=== PATIENT | female | born 2000 | race Caucasian/White ===

== ENCOUNTER 2023-01-28 22:14 | Inpatient (IN) ==
--- NOTE | 2023-01-28 23:01 | Emergency Department Note ---
Impression & Plan Pulmonary embolism, Pneumonia ED Provider Note CHIEF COMPLAINT: Upper back pain, shortness of breath, pneumonia and PE HISTORY OF PRESENTING ILLNESS: This 22-year-old female patient presents to the emergency department via EMS with her mother for evaluation of uncontrolled pain. The patient was seen in the emergency department last night and diagnosed with a PE and pneumonia. The patient was sent home with doxycycline, Eliquis, and etodolac. The patient reports significantly more pain on the left side of her lungs/back tonight with no relief from the medications. She rates her discomfort as 10/10. She states that it hurts to sit, to stand, to walk, and to sleep. She states that her pain is significantly worse than yesterday and is requesting stronger pain medication. About 2 weeks ago she had swelling to the right ankle and had an US done that was negative for DVT per patient. She was on OCPs for regulation of her periods, but she did not take her dose today because she was told to stop because of the PE. Her maternal grandfather with a history of PE. REVIEW OF SYSTEMS: See HPI for pertinent positives and pertinent negatives. ALLERGIES: NKDA MEDICATIONS: Zoloft, Zyrtec, Azelastine, Eliquis, Doxycycline, etodolac PAST MEDICAL HISTORY: Depression, Anxiety, Allergic Rhinitis, PE PHYSICAL EXAM: VITALS: Vitals are noted on the nurse's note and reviewed by myself. GENERAL: Non toxic, no acute distress, non-diaphoretic. SKIN: Capillary refill <2 sec. EYES: PERRLA. EOMI. Conjunctivae without injection, sclerae without icterus. NOSE: Patent without discharge. MOUTH: Mucous membranes moist. Uvula midline. Airway patent. NECK: Supple without nuchal rigidity. HEART: Regular rate and rhythm without murmurs gallops or rubs. LUNGS: Clear to auscultation bilaterally without wheezes, rales or rhonchi, but poor air exchange bilaterally. No retractions or accessory muscle use. ABDOMEN: Positive bowel sounds x 4. Normal tympanic percussion. Soft, nontender. No masses or organomegaly. Lim sign negative. No guarding or rebound tenderness. No focal RLQ or LLQ tenderness. MUSCULOSKELETAL: No gross musculoskeletal defects. NEURO: Patient was alert and oriented. No focal neurological deficits. DIFFERENTIAL DIAGNOSIS: Differential diagnosis includes angina, OR, pericarditis, myocarditis, aortic dissection, pleurisy, pneumothorax, PE, pneumonia, pneumomediastinum, esophagitis, esophageal spasm, GERD, perforated esophagus, perforated duodenal/gastric ulcer, pancreatitis, cholecystitis, costochondritis, musculoskeletal, bronchitis, URI, or others. ED COURSE AND MEDICAL DECISION MAKING: MONITOR: Continuous cardiac catheterization technologist: Order was placed for continuous cardiac catheterization technologist. Patient was placed on the cardiac catheterization technologist and continuous pulse ox. Patient was noted to be in normal sinus rhythm at an initial rate of 90 bpm per my interpretation. EKG: EKG was interpreted by myself as normal sinus rhythm at 91 bpm with nonspecific T wave abnormalities, but no acute ST elevation. MEDICATIONS GIVEN: 500 mL normal saline solution bolus. Morphine 4 mg IV and Zofran 4 mg IV. INTERPRETATION OF LABS: I interpreted the labs with full lab results as below in the lab section of this note. White blood cell count elevated at 13.10, but improved from yesterday. Hemoglobin low at 11.3. Platelet count normal at 223. aPTT elevated at 37.2, but coags otherwise normal. Potassium low at 3.2, but CMP otherwise essentially unremarkable. EXTERNAL RECORDS REVIEWED: I reviewed the patient's ER visit and work-up from yesterday. CONSULTATIONS: On-call hospitalist MDM SUMMARY: I examined the patient. I reviewed the patient's ER visit and work-up from yesterday that revealed a PE as well as pneumonia. The patient was discharged home on Eliquis, doxycycline, and etodolac. However, the patient states that her symptoms are getting worse and her pain is not controlled at home. The patient will require admission for further management of her symptoms at this time. I spoke with the on-call hospitalist who agreed to admit the patient for further management of her symptoms. Please refer to their dictation for further details. An IV lock was placed and labs were drawn and are as above. The patient was medicated with morphine 4 mg IV and Zofran 4 mg IV with improvement of her pain. The patient's care was transferred in stable condition. DIAGNOSIS: PE LLL pneumonia Past Med/Surg History Medical History (Updated 01/29/23 @ 05:40 by Vanda Gillette PA-C) No pertinent past medical history No pertinent family history Surgical History (Updated 01/28/23 @ 00:56 by Chalino Frederick MD) No pertinent past surgical history Social History Smoking Status: Never smoker Hx Alcohol Use: Yes Hx Substance Use: No Preferred Language: Irish Communication Ability: Effective Asset Availability Leader Required: No Beliefs That Will Affect Care: None Current Living Situation: Alone Feels Safe at Home: Yes Safety Concerns: Feels Safe At This Time Assistive Devices: Glasses Allergies Allergies Allergy/AdvReac Type Severity Reaction Status Date / Time No Known Drug Allergies Allergy Unknown Verified 12/14/22 08:04 Home Meds Home Medications Medication Instructions Recorded Confirmed cetirizine 10 mg tablet (Zyrtec) 10 mg PO DAILY PRN Allergy Symptoms 12/14/22 01/29/23 ibuprofen 800 mg tablet 800 mg PO Q8 01/27/23 01/29/23 sertraline 100 mg tablet 200 mg PO QAM 01/27/23 01/29/23 norgestimate 0.18 mg/0.215 mg/0.25 1 tab PO UD 01/29/23 01/29/23 mg-ethinyl estradiol 25 mcg tablet (Tri-Lo-Maylin) Previous Rx's Medication Instructions Recorded azelastine 137 mcg (0.1 %) nasal See Rx Instructions .Route 10/27/22 spray aerosol .COMPLEX #30 mL apixaban 5 mg tablet (Eliquis) See Rx Instructions .Route 01/27/23 .COMPLEX #74 tabs doxycycline hyclate 100 mg capsule 100 mg PO BID 7 days #14 caps 01/27/23 etodolac 200 mg capsule 200 mg PO Q12H PRN pain #14 caps 01/27/23 Results & Data (ED) Vital Signs Vital Signs - 24 hr 01/28/23 22:25 01/28/23 23:53 01/28/23 23:53 Temperature 36.5 C Temperature Source Temporal Artery Scan Pulse Rate 98 H Pulse Rate [Right Finger] 90 Respiratory Rate 18 16 Respiratory Effort / Characteristics Non-Labored Spontaneous Respiratory Depth Normal Normal Blood Pressure 122/82 Blood Pressure [Right Arm] 130/100 Blood Pressure Mean 95 Blood Pressure Mean [Right Arm] 110 Pulse Oximetry 98 95 95 Oxygen Delivery Method Room Air Room Air Room Air Sepsis Recent Fever Within 48 Hours No Sepsis New/Unexplained Change in Mental Status N/A Sepsis Action Taken by Nursing No Action Required Laboratory Data 01/28/23 23:50 11/11/23 00:03 Lab Results 01/28/23 01/29/23 Range/Units 23:50 00:03 WBC 13.10 H (4.8-10.8) K/ul RBC 4.26 (4.20-5.40) M/uL Hgb 11.3 L (12.0-16.0) g/dl Hct 34.5 L (37.0-47.0) % MCV 81.0 (80.0-100.0) fL MCH 26.5 (25.0-34.0) pg MCHC 32.8 (32.0-36.0) g/dL RDW Std Deviation 42.7 (36.4-46.3) fL RDW Coeff of [place] 14.6 H (11.5-14.5) % Plt Count 223 (130-400) K/uL MPV 10.4 (9.4-12.4) fL Immature Gran % (Auto) 0.4 % Neut % (Auto) 85.0 % Lymph % (Auto) 8.3 % [place] % (Auto) 5.3 % Eos % (Auto) 0.8 % Baso % (Auto) 0.2 % Neut # (Auto) 11.13 H (1.40-6.50) K/uL Lymph # (Auto) 1.09 L (1.20-3.40) K/uL [place] # (Auto) 0.70 H (0.11-0.59) K/uL Eos # (Auto) 0.10 (0.00-0.50) K/uL Baso # (Auto) 0.03 (0.00-0.20) K/uL Immature Gran # (Auto) 0.05 (0.01-0.20) K/uL PT 11.1 (9.0-12.0) Seconds INR 1.0 (0.9-1.1) APTT 37.2 H (21.0-31.0) Seconds PTT Ratio 1.3 Sodium 139 (136-145) mmol/L Potassium 3.2 L (3.5-5.1) mmol/L Chloride 104 (98-107) mmol/L Carbon Dioxide 25 (21-32) mmol/L Anion Gap 10 (3-11) BUN 5 L (6-23) mg/dl Creatinine 0.56 L (0.6-1.2) mg/dl Est Cr Clr Drug Dosing Not Reportable Est GFR ( Amer) > 150.0 ml/min Est GFR (Non-Af Amer) 131.4 ml/min BUN/Creatinine Ratio 8.9 L (10-20) Glucose 114 H (70-99(Fasting)) mg/dl Calcium 9.2 (8.6-10.3) mg/dl Magnesium 1.9 (1.7-2.4) mg/dl Total Bilirubin 0.6 (0.2-1.0) mg/dl AST 10 L (13-39) U/L ALT 9 (7-52) U/L Alkaline Phosphatase 83 (34-104) U/L Troponin I High Sens 7.3 D (0-14) pg/ml Total Protein 7.3 (6.0-8.3) gm/dl Albumin 4.0 (3.4-5.0) gm/dl Globulin 3.3 (2.5-4.0) gm/dl Albumin/Globulin Ratio 1.2 (0.9-2) Administered Medications Hydromorphone HCl (Hydromorphone Inj 1 Mg/Ml Syringe) 1 mg IV Q4H PRN PRN Reason: Pain Stop: 02/12/23 00:21 Last Admin: 01/29/23 02:24 Dose: 1 mg Documented By: MARTA Doxycycline Hyclate 100 mg/ (Dextrose) 100 mls @ 50 mls/hr IV Q12H ASHWINI Stop: 02/05/23 02:59 Last Admin: 01/29/23 03:45 Dose: 50 mls/hr Documented By: FRANSISCA Discontinued Medications Albuterol (Albut/Ipratrop 3mg/0.5mg Neb 3 Ml Vial) 3 ml NEB Q1H PRN; Protocol PRN Reason: Shortness Of Breath Stop: 02/28/23 00:29 Last Admin: 01/29/23 01:07 Dose: 3 ml Documented By: GREG Hydromorphone HCl (Hydromorphone Inj 1 Mg/Ml Syringe) 1 mg IV NOW STA Stop: 01/29/23 00:23 Last Admin: 01/29/23 00:53 Dose: Not Given Documented By: GREG Sodium Chloride (Nss) 500 mls @ 999 mls/hr IV .Q31M ONE Stop: 01/28/23 23:58 Last Infusion: 01/29/23 01:02 Dose: Infused Documented By: Admin: 01/29/23 00:02 Dose: 999 mls/hr Documented By: GREG Ceftriaxone Sodium 1,000 mg/ (Dextrose) 50 mls @ 100 mls/hr IV Q24H [facility]; Protocol Stop: 02/05/23 02:29 Last Infusion: 01/29/23 03:43 Dose: Infused Documented By: Admin: 01/29/23 03:03 Dose: 100 mls/hr Documented By: FRANSISCA Ceftriaxone Sodium 1,000 mg/ (Dextrose) 50 mls @ 100 mls/hr IV 0430 ONE Stop: 01/29/23 04:59 Last Infusion: 01/29/23 05:09 Dose: Infused Documented By: Admin: 01/29/23 04:31 Dose: 100 mls/hr Documented By: FRANSISCA Methylprednisolone (Methylprednisolone 125 Mg/2 Ml Vial) 60 mg IV NOW STA Stop: 01/29/23 00:23 Last Admin: 01/29/23 01:07 Dose: 60 mg Documented By: GREG Miscellaneous (Patient's Height &/Or Weight Needed) 1 each N/A NOW STA Stop: 01/29/23 02:28 Last Admin: 01/29/23 02:46 Dose: Not Given Documented By: MARTA Morphine Sulfate (Morphine Sulfate 4 Mg/Ml 1 Ml Carp\Vial) 4 mg IV NOW STA Stop: 01/28/23 23:29 Last Admin: 01/29/23 00:02 Dose: 4 mg Documented By: GREG Ondansetron HCl (Ondansetron Inj 2 Mg/Ml 2 Ml Vial) 4 mg IV NOW STA Stop: 01/28/23 23:29 Last Admin: 01/29/23 00:02 Dose: 4 mg Documented By: GREG Discharge Plan Visit Data Chief Complaint: Medication Request Stated Complaint: UPPER BACK PAIN, SOB, PNX/PE ED Provider: Surinder Beltran ED Midlevel Provider: Vanda Gillette Discharge Problem: Pulmonary embolism, Pneumonia Patient Disposition: Admitted As Inpatient Condition: Good Discharge Instructions Interventions: ED Discharge Assessment Last Done: 01/29/23 01:33 Discharge Problem: Pulmonary embolism Qualifiers: Pulmonary embolism type: unspecified Chronicity: acute Acute cor pulmonale presence: unspecified Qualified Code(s): I26.99 - Other pulmonary embolism without acute cor pulmonale Pneumonia Qualifiers: Pneumonia type: due to unspecified organism Laterality: left
[2023-01-28] MEDS ORDERED: SODIUM CHLORIDE 0.9% 500 ML IV ONE (23:28)
[2023-01-28] MEDS ORDERED: MoRPHine SULFATE 4 MG/ML 1 ML CARP\\VIAL IV STA (23:28)
[2023-01-28] MEDS ORDERED: ONDANSETRON INJ 2 MG/ML 2 ML VIAL IV STA (23:28)
--- NOTE | 2023-01-28 23:50 | History & Physical Report ---
Date of Service January 28, 2023 Assessment & Plan (1) Pneumonia: (2) Pulmonary embolism: (3) Depression: Plan 22 yo female with no significant past medical history presents after diagnosis with pneumonia and PE on 12/27/22. #Pneumonia Ceftriaxone 1G IV q24hrs Doxycycline 100mg IV BID Solumedrol 60mg once, decrease to 40mg q12hrs Duonebs #PE Continue Eliquis Venous Doppler b/l LE Pain control Tylenol, dilaudid #Depression Sertraline 200mg daily FENGI: Regular Code status: Full Code DVT prophylaxis: Eliquis Isolation: None Disposition: Med/Surg History of Present Illness Chief Complaint: 22 yo female presents with increased pain after being discharged yesterday 01/27/23 with diagnosis of L lower segmental PE and L lower pneumonia. Discharged on Eliquis, doxycycline, and etodolac. Returning today with continued 10/ pain and continued SOB. Pt was on OCP until yesterday. Pt with maternal grandfather with history of unknown clotting disorder and early cardiac . Primary Care Provider: Erica Akbar MD Allergies Allergy/AdvReac Type Severity Reaction Status Date / Time No Known Drug Allergies Allergy Unknown Verified 12/14/22 08:04 Home Medications Medication Instructions Recorded Confirmed Type azelastine 137 mcg (0.1 %) nasal See Rx Instructions .Route 10/27/22 01/29/23 Rx spray aerosol .COMPLEX #30 mL cetirizine 10 mg tablet (Zyrtec) 10 mg PO DAILY PRN Allergy Symptoms 12/14/22 01/29/23 History apixaban 5 mg tablet (Eliquis) See Rx Instructions .Route 01/27/23 01/29/23 Rx .COMPLEX #74 tabs doxycycline hyclate 100 mg capsule 100 mg PO BID 7 days #14 caps 01/27/23 01/29/23 Rx etodolac 200 mg capsule 200 mg PO Q12H PRN pain #14 caps 01/27/23 01/29/23 Rx ibuprofen 800 mg tablet 800 mg PO Q8 01/27/23 01/29/23 History sertraline 100 mg tablet 200 mg PO QAM 01/27/23 01/29/23 History norgestimate 0.18 mg/0.215 mg/0.25 1 tab PO UD 01/29/23 01/29/23 History mg-ethinyl estradiol 25 mcg tablet (Tri-Lo-Maylin) Past Med/Surg History Medical History (Updated 01/29/23 @ 00:27 by Dennis Duarte DO) No pertinent past medical history No pertinent family history Surgical History (Updated 01/28/23 @ 00:56 by Chalino Frederick MD) No pertinent past surgical history Social History Smoking Status: Never smoker Hx Alcohol Use: Yes Hx Substance Use: No Preferred Language: Mongolian Communication Ability: Effective Crown And Bridge Technician Required: No Beliefs That Will Affect Care: None Current Living Situation: Alone Feels Safe at Home: Yes Safety Concerns: Feels Safe At This Time Assistive Devices: Glasses Review of Systems Review of Systems: reviewed, per HPI Physical Exam Physical Exam: General: patient resting is some discomfort, NAD, non-toxic in appearance, answers questions appropriately and follows commands. Skin: warm, dry, intact HEENT: NC/AT, anicteric sclera, conjunctiva without injection, Heart: +S1/S2, regular, no m/r/g Lungs: equal air entry bilaterally, no rales/rhonchi/wheezes Abd: +BS, soft, NT/ND Ext: warm, no clubbing/cyanosis or edema Neuro: nonfocal, patient AA&O x 4, speech intact, no facial droop, moving all extremities on command. Results & Data Results & Data Vital Signs (Past 12 Hours) Vital Signs Temp Pulse Resp BP Pulse Ox O2 Del Method 01/28/23 22:25 36.5 C 98 H 18 122/82 98 Room Air Supervising Physician Co-Signing Physician Notes Attending addendum: I have physically seen this patient, have supervised the medical residents activities, and agree with the H&P unless as otherwise noted. Assessment and Plan: Left lower lobe pulmonary embolism/left lower lobe consolidated pneumonia- Patient had initially been diagnosed in the emergency department on 01/28/2023. She was discharged from the ED on apixaban and doxycycline. She presented to the ED this evening with intolerable left posterior chest pain Received methylprednisolone 60 mg IV in the ED, will continue 40 mg IV every 12 hours Doxycycline 100 mg IV twice daily Ceftriaxone 2 g IV every 24 hours Continue apixaban Order hypercoagulable profile [place] 5/325, 1 every 6 hours as needed for moderate pain Dilaudid 1 mg IV every 4 hours as needed for severe pain She will need to follow-up in outpatient office with a combined resident/attending appointment to go over results of testing She did of note have a negative DVT study 2 weeks ago Resident Activity Tracking Resident Involvement: Resident Care Provided Care Provided: Adult Hospital Medicine (1) Pneumonia Laterality: left Lung location: lower lobe of lung Pneumonia type: due to unspecified organism Qualified Code(s): J18.9 - Pneumonia, unspecified organism (2) Pulmonary embolism Pulmonary embolism type: single subsegmental (without acute cor pulmonale) Qualified Code(s): I26.93 - Single subsegmental pulmonary embolism without acute cor pulmonale
[2023-01-29] MEDS ORDERED: HYDROmorphone INJ 1 MG/ML SYRINGE IV STA (00:22)
[2023-01-29] MEDS ORDERED: ALBUT/IPRATROP 3MG/0.5MG NEB 3 ML VIAL NEB PRN ×2 (00:22→01:34)
[2023-01-29] MEDS ORDERED: methylPREDNISolone 125 MG/2 ML VIAL IV STA (00:22)
[2023-01-29 00:27] LABS: Basophils # (auto) 0.03 K/uL (0.00-0.20); Basophils % (auto) 0.2 %; Eosinophils % (auto) 0.8 %; Hematocrit (blood only) 34.5 % (37.0-47.0); Hemoglobin 11.3 g/dl (12.0-16.0); Immature Granulocytes # (auto) 0.05 K/uL (0.01-0.20); Immature Granulocytes % (auto) 0.4 %; Lymphocytes # (auto) 1.09 K/uL (1.20-3.40); Lymphocytes % (auto) 8.3 %; Mean Corpuscular Hemoglobin 26.5 pg (25.0-34.0); Mean Corpuscular Hgb Conc 32.8 g/dL (32.0-36.0); Mean Platelet Volume 10.4 fL (9.4-12.4); Monocytes % (auto) 5.3 %; Neutrophils # (auto) 11.13 K/uL (1.40-6.50); Platelet Count 223 K/uL (130-400); RDW Coefficient of Variation 14.6 % (11.5-14.5); RDW Standard Deviation 42.7 fL (36.4-46.3); Red Blood Count 4.26 M/uL (4.20-5.40)
[2023-01-29 00:51] LABS: Alanine Aminotransferase 9 U/L (7-52); Albumin Globulin Ratio 1.2 (0.9-2); Alkaline Phosphatase 83 U/L (34-104); Anion Gap 10 (3-11); Aspartate Aminotransferase 10 U/L (13-39); BUN Creatinine Ratio 8.9 (10-20); Bilirubin,Total 0.6 mg/dl (0.2-1.0); Blood Urea Nitrogen 5 mg/dl (6-23); Calcium 9.2 mg/dl (8.6-10.3); Carbon Dioxide 25 mmol/L (21-32); Chloride 104 mmol/L (98-107); Est GFR (African American) > 150.0 ml/min; Est GFR (Non-African American) 131.4 ml/min; Globulin 3.3 gm/dl (2.5-4.0); Glucose 114 mg/dl (70-99(Fasting)); Magnesium 1.9 mg/dl (1.7-2.4); Potassium 3.2 mmol/L (3.5-5.1); Sodium 139 mmol/L (136-145); Total Protein 7.3 gm/dl (6.0-8.3); Troponin I High Sensitivity 7.3 pg/ml (0-14)
[2023-01-29 00:59] LABS: Partial Thromboplastin Ratio 1.3; Partial Thromboplastin Time 37.2 Seconds (21.0-31.0); Prothrombin Time 11.1 Seconds (9.0-12.0)
[2023-01-29] MEDS ORDERED: CETIRIZINE HCL 10 MG TABLET PO PRN (01:34)
[2023-01-29] MEDS ORDERED: ACETAMINOPHEN 325 MG TAB PO PRN (01:34)
[2023-01-29] MEDS ORDERED: ONDANSETRON INJ 2 MG/ML 2 ML VIAL IV PRN (01:34)
[2023-01-29] MEDS ORDERED: POLYETHYLENE (MIRALAX) 17 GM PACK PO PRN (01:34)
[2023-01-29] MEDS ORDERED: ALUMINUM/MAGNESIUM SUSP 30 ML UDC PO PRN (01:34)
[2023-01-29] MEDS ORDERED: HYDROmorphone INJ 1 MG/ML SYRINGE IM PRN (01:34)
[2023-01-29] MEDS: HYDROmorphone INJ 1 MG/ML SYRINGE IV PRN ×3 (02:24→13:41)
[2023-01-29] MEDS ORDERED: Patient's HEIGHT &/or WEIGHT Needed STA (02:27)
[2023-01-29] MEDS ORDERED: cefTRIAXone SODIUM 1,000 MG in DEXTROSE 5 % MINI-B 50 ML IV SCH (02:30)
[2023-01-29] MEDS: DOXYCYCLINE HYCLATE 100 MG in DEXTROSE 5% MINI-B 100 ML IV SCH ×2 (03:45→15:44)
[2023-01-29] MEDS ORDERED: cefTRIAXone SODIUM 1,000 MG in DEXTROSE 5 % MINI-B 50 ML IV ONE (04:30)
--- NOTE | 2023-01-29 05:35 | Billing Data ---
Date of Service January 29, 2023 Coding Level of Care Code 02009 INT INP/OBS CARE
--- NOTE | 2023-01-29 06:34 | Ultrasound Report ---
BILATERAL LOWER EXTREMITY VENOUS DOPPLER CLINICAL HISTORY: Pulmonary emboli. COMPARISON STUDY: Right lower extremity venous Doppler ultrasound January 17, 2023. TECHNIQUE: Sonography of the deep venous system of the bilateral lower extremities was performed. Co mpression and augmentation were evaluated. FINDINGS: There is no deep venous thrombus within the right lower extremity. Deep venous thrombus is noted within the left peroneal vein. No additional sites of deep venous thrombus is identified. IMPRESSION: Deep venous thrombus within the left peroneal vein. No additional sites of deep venous th rombus within the lower extremities. ACT 112: Negative or not required by law. Electronically signed by: Ben Conway M.D. 01/29/2023 6:32 AM
[2023-01-29] MEDS: HYDROCODONE/ACETAMOPHEN 5/325MG TAB PO PRN ×2 (06:37→20:18)
[2023-01-29] MEDS ORDERED: POTASSIUM CHLORIDE CRTAB 20 MEQ TABCR PO STA (07:19)
--- NOTE | 2023-01-29 07:54 | Hospitalist Progress Note ---
Date of Service January 29, 2023 Assessment & Plan (1) Pneumonia: (2) Pulmonary embolism: (3) Depression: Plan 22 y/o female with no significant past medical history presents after diagnosis with pneumonia and PE on 12/27/22. #PE #Pain control Patient presented to the ED 01/27 with CP and SOB. Patient with elevated D-dimer and CT with left lower PE. Non-smoker, no recent immobility. Does take combo OCPs - stopped at ED visit. Patient also with a LLL pneumonia. Discharged home with abx, Eliquis, and pain medication. Returned as pain inadequately controlled at home. Admitted for pain management. If pain difficult to control or patient develops hemodynamic instability consider antithrombotic. Continue Eliquis Doppler with left DVT, presuming in the setting of OCP use Pain control Tylenol scheduled, Toradol PRN, Dilaudid PRN d/c OCPs Coag panel pending - will need outpatient f/u #Pneumonia LLL PNA seen on CT 01/27. Discharged on oral doxy monotherapy. As patient admitted will do - Ceftriaxone 1G IV q24hrs. Doxycycline 100mg IV BID. Check MRSA nares. Presentation not particularly congruent with pneumonia. Patient was given Solumedrol in the ED. Patient without increased work of breathing or wheezing. Patient's symptoms more likely due to pulmonary embolism with ?infarct. Likely abx/steroids will not change clinical course. Discontinue steroids. MRSA nares negative. Will order CRP and procal. Consider discontinuation of abx if normal. Abx: Doxy 01/27 Added CTX 01/28 #Depression Sertraline 200mg daily FENGI: Regular Code status: Full Code DVT prophylaxis: Eliquis Isolation: None Disposition: Med/Surg Admission and Anticipated Discharge Date Admission Date: January 29, 2023 Supervising Physician Co-Signing Physician Notes I personally examined the patient and verified all amador points of history and exam, discussed case, and agree with decision making with Dr Sukhwinder perea doing better - toradol helped a lot. she notes she was skeptical about pneumonia as well. vitals noted nad heent nc at mmm breathing unlabored no accessory muscles good effort PE, pleuritic pain, pulmonary infarct vs pneumonia (favor infarct) - continue anticoagulation. pain control now better. can't really rule out pneumonia but d/w pt will trend inflammatory markers - if reassuring maybe can shorten course of abx. Subjective Patient with continued pain/discomfort. Unable to sleep due to pain. Otherwise feeling well. Review of Systems 2 Review of Systems: reviewed, per HPI Physical Exam 2 Physical Exam: General: patient resting is some discomfort, NAD, non-toxic in appearance, answers questions appropriately and follows commands. Skin: warm, dry, intact HEENT: NC/AT, anicteric sclera, conjunctiva without injection, Heart: +S1/S2, regular, no m/r/g Lungs: equal air entry bilaterally, no rales/rhonchi/wheezes Abd: NT/ND Ext: warm, no clubbing/cyanosis or edema Neuro: nonfocal, patient AA&O x 4, speech intact, no facial droop, moving all extremities on command. Results & Data Results & Data Vital Signs (Past 12 Hours) Vital Signs Temp Pulse Pulse Resp BP BP BP 01/29/23 07:00 104 H 26 H 130/88 01/29/23 02:31 01/29/23 02:22 37.1 C 105 H 22 152/90 H 01/29/23 01:18 85 16 126/82 01/28/23 23:53 90 16 130/100 01/28/23 23:53 01/28/23 22:25 36.5 C 98 H 18 122/82 Pulse Ox O2 Del Method 01/29/23 07:00 95 Room Air 01/29/23 02:31 Room Air 01/29/23 02:22 99 Room Air 01/29/23 01:18 95 Room Air 01/28/23 23:53 95 Room Air 01/28/23 23:53 95 Room Air 01/28/23 22:25 98 Room Air Laboratory Results 01/28/23 23:50 01/29/23 00:03 Resident Activity Tracking Resident Involvement: Resident Care Provided Care Provided: Adult Hospital Medicine (1) Pneumonia Laterality: left Pneumonia type: due to unspecified organism (2) Pulmonary embolism Acute cor pulmonale presence: unspecified Chronicity: acute Pulmonary embolism type: unspecified Qualified Code(s): I26.99 - Other pulmonary embolism without acute cor pulmonale
[2023-01-29] MEDS: SERTRALINE HCL 100 MG TABLET PO SCH (08:45)
[2023-01-29] MEDS: APIXABAN 5 MG TABLET PO SCH ×2 (08:45→21:13)
[2023-01-29] MEDS ORDERED: methylPREDNISolone 40 MG in SYRINGE 0 ML IV SCH (09:00)
[2023-01-29] MEDS ORDERED: HYDROmorphone INJ 0.5 MG/0.5 ML SYR IV STA (09:40)
[2023-01-29] MEDS: AZELASTINE HCL 0.1% NASAL 200 SPRAYS/27,400 MCG BTL NAE PRN (13:26)
[2023-01-29] MEDS: ACETAMINOPHEN 325 MG TAB PO SCH ×3 (13:27→23:37)
[2023-01-29] MEDS ORDERED: KETOROLAC TROMETHAMINE 15 MG/ML VIAL IV PRN (15:24)
[2023-01-29] MEDS ORDERED: KETOROLAC TROMETHAMINE 15 MG/ML VIAL IV ONE (15:24)
--- NOTE | 2023-01-29 19:42 | Billing Data ---
Date of Service January 29, 2023 Coding Level of Care Code 60550 SUB INP/OBS CARE MIN
[2023-01-30] MEDS: DOXYCYCLINE HYCLATE 100 MG in DEXTROSE 5% MINI-B 100 ML IV SCH ×2 (02:42→16:20)
[2023-01-30] MEDS: HYDROCODONE/ACETAMOPHEN 5/325MG TAB PO PRN (02:54)
[2023-01-30] MEDS: ACETAMINOPHEN 325 MG TAB PO SCH ×4 (05:15→22:47)
[2023-01-30] MEDS: cefTRIAXone SODIUM 2,000 MG in DEXTROSE 5 % MINI-B 50 ML IV SCH (05:15)
[2023-01-30] MEDS: APIXABAN 5 MG TABLET PO SCH ×2 (08:09→20:14)
[2023-01-30] MEDS: SERTRALINE HCL 100 MG TABLET PO SCH (08:09)
[2023-01-30 08:44] LABS: Basophils # (auto) 0.02 K/uL (0.00-0.20); Basophils % (auto) 0.2 %; Eosinophils # (auto) 0.08 K/uL (0.00-0.50); Eosinophils % (auto) 0.7 %; Hematocrit (blood only) 33.9 % (37.0-47.0); Hemoglobin 10.7 g/dl (12.0-16.0); Immature Granulocytes # (auto) 0.05 K/uL (0.01-0.20); Immature Granulocytes % (auto) 0.4 %; Lymphocytes # (auto) 2.63 K/uL (1.20-3.40); Lymphocytes % (auto) 23.5 %; Mean Corpuscular Hemoglobin 26.1 pg (25.0-34.0); Mean Corpuscular Hgb Conc 31.6 g/dL (32.0-36.0); Mean Corpuscular Volume 82.7 fL (80.0-100.0); Mean Platelet Volume 10.6 fL (9.4-12.4); Monocytes # (auto) 0.76 K/uL (0.11-0.59); Monocytes % (auto) 6.8 %; Neutrophils # (auto) 7.65 K/uL (1.40-6.50); Neutrophils % (auto) 68.4 %; Platelet Count 261 K/uL (130-400); RDW Coefficient of Variation 14.4 % (11.5-14.5); RDW Standard Deviation 43.2 fL (36.4-46.3); White Blood Count 11.19 K/ul (4.8-10.8)
[2023-01-30 09:00] LABS: Alanine Aminotransferase 7 U/L (7-52); Albumin Globulin Ratio 1.2 (0.9-2); Albumin Level 3.6 gm/dl (3.4-5.0); Alkaline Phosphatase 76 U/L (34-104); Anion Gap 7 (3-11); Aspartate Aminotransferase 8 U/L (13-39); Bilirubin,Total 0.3 mg/dl (0.2-1.0); Blood Urea Nitrogen 6 mg/dl (6-23); Carbon Dioxide 30 mmol/L (21-32); Chloride 104 mmol/L (98-107); Creatinine Clr Calc Pharmacy 263.4 ml/min; Est GFR (African American) > 150.0 ml/min; Est GFR (Non-African American) 136.4 ml/min; Glucose 108 mg/dl (70-99(Fasting)); Potassium 3.1 mmol/L (3.5-5.1); Sodium 141 mmol/L (136-145); Total Protein 6.6 gm/dl (6.0-8.3)
[2023-01-30 09:14] LABS: Partial Thromboplastin Ratio 1.3; Prothrombin Time 10.7 Seconds (9.0-12.0)
[2023-01-30] MEDS ORDERED: POTASSIUM CHLORIDE CRTAB 20 MEQ TABCR PO STA (10:10)
[2023-01-30] MEDS: POTASSIUM CHLORIDE / WTR 10 MEQ/100 ML PLCT IV SCH ×4 (10:46→18:10)
[2023-01-30] MEDS ORDERED: IBUPROFEN 600 MG TAB PO PRN (11:44)
--- NOTE | 2023-01-30 13:54 | Hospitalist Progress Note ---
Date of Service January 30, 2023 Assessment & Plan (1) Pneumonia: (2) Pulmonary embolism: (3) Depression: Plan 22 y/o female with no significant past medical history presents with inadequately treated pleuritic left sided chest pain in the setting of recent PE admitted for main management. #PE #Pain control Patient presented to the ED 01/27 with CP and SOB. Patient with elevated D-dimer and CT with left lower PE. Left lower extremity DVT. Non-smoker, no recent immobility. Was on combo OCPs - discontinued. Discharged home with Eliquis and pain medication. Returned as pain inadequately controlled at home. Admitted for pain management. Pain control improved. Coagulopathy panel pending. Continue Eliquis 10 mg BID x 7 days then 5 mg BID for at least 3-6 months. Possibly indefinitely depending on panel results. Pain control Tylenol scheduled, Ibuprofen 600 mg PRN, Vicodin PRN, Dilaudid PRN d/c OCPs Coag panel pending - will need outpatient f/u #Pneumonia LLL PNA seen on CT 01/27. Discharged on oral doxy monotherapy. As patient admitted will do - Ceftriaxone 1G IV q24hrs. Doxycycline 100mg IV BID. Presentation not particularly congruent with pneumonia. Patient was given Solumedrol in the ED. Patient without increased work of breathing or wheezing. Patient's symptoms more likely due to pulmonary embolism with ?infarct. Likely abx/steroids will not change clinical course. Discontinue steroids. MRSA nares negative. CRP elevated. Procal negative. Consistent with non-infectious inflammation. Has completed 3 days of antibiotics. Would continue while inpatient and d/c without further antimicrobial treatment. #Depression Sertraline 200mg daily FENGI: Regular Code status: Full Code DVT prophylaxis: Eliquis Isolation: None Disposition: Med/Surg Admission and Anticipated Discharge Date Admission Date: January 29, 2023 Supervising Physician Co-Signing Physician Notes I personally examined the patient and verified all amador points of history and exam, discussed case, and agree with decision making with Dr Sukhwinder Traore doing better, but still having enough that she is worried about being at home. vitals noted nad heent nc at mmm breathing unlabored no accessory muscles good effort PE, pleuritic pain, pulmonary infarct vs pneumonia (favor infarct) - continue anticoagulation. pain control now better continue current care for now, hopefully home soon.. can't really rule out pneumonia but d/w pt will trend inflammatory markers -probably can treat with a very short course of antibiotics given that it is most likely pulmonary infarct not pneumonia. Subjective Did have significant pain overnight. Improved with medication. Otherwise feeling fine. Never felt sick. Review of Systems 2 Review of Systems: reviewed, per HPI Physical Exam 2 Physical Exam: General: patient resting comfortably, NAD, non-toxic in appearance, answers questions appropriately and follows commands. Skin: warm, dry, intact HEENT: NC/AT, anicteric sclera, conjunctiva without injection, Heart: clinically well perfused Lungs: no increased work of breathing Abd: NT/ND Ext: warm, no clubbing/cyanosis or edema Neuro: nonfocal, patient AA&O x 4, speech intact, no facial droop, moving all extremities on command. Results & Data Results & Data Vital Signs (Past 12 Hours) Vital Signs Temp Pulse Resp BP Pulse Ox O2 Del Method 01/30/23 08:27 Room Air 01/30/23 08:02 36.5 C 80 16 128/78 97 Room Air Laboratory Results 01/30/23 08:07 01/30/23 08:07 Resident Activity Tracking Resident Involvement: Resident Care Provided Care Provided: Adult Hospital Medicine (1) Pneumonia Laterality: left Pneumonia type: due to unspecified organism (2) Pulmonary embolism Acute cor pulmonale presence: unspecified Chronicity: acute Pulmonary embolism type: unspecified Qualified Code(s): I26.99 - Other pulmonary embolism without acute cor pulmonale
[2023-01-30] MEDS: AZELASTINE HCL 0.1% NASAL 200 SPRAYS/27,400 MCG BTL NAE PRN (15:00)
[2023-01-30] MEDS ORDERED: OXYMETAZOLINE 0.05% 30 ML BTL STA (15:21)
--- NOTE | 2023-01-30 18:07 | Billing Data ---
Date of Service January 30, 2023 Coding Level of Care Code 25093 SUB INP/OBS CARE
[2023-01-30] MEDS ORDERED: SERTRALINE HCL 100 MG TABLET PO ONE (19:00)
--- NOTE | 2023-01-30 19:41 | Electrocardiogram Report ---
Test Reason : Blood Pressure : / mmHG Vent. Rate : 091 BPM Atrial Rate : 091 BPM P-R Int : 142 ms QRS Dur : 090 ms QT Int : 358 ms P-R-T Axes : 039 016 000 degrees QTc Int : 440 ms Normal sinus rhythm Nonspecific T wave abnormality Abnormal ECG When compared with ECG of 27-JAN-2023 15:58, No significant change was found Confirmed by Bo Medellin ([id number]) on 01/30/2023 7:41:11 PM Referred By: REFERRED SELF Confirmed By:Bo Medellin
--- NOTE | 2023-01-30 19:56 | Electrocardiogram Report ---
Test Reason : Blood Pressure : / mmHG Vent. Rate : 089 BPM Atrial Rate : 089 BPM P-R Int : 150 ms QRS Dur : 086 ms QT Int : 392 ms P-R-T Axes : 035 011 008 degrees QTc Int : 476 ms Normal sinus rhythm Nonspecific T wave abnormality Prolonged QT Abnormal ECG When compared with ECG of 27-JAN-2023 15:58, No significant change was found Confirmed by Bo Medellin ([id number]) on 01/30/2023 7:56:26 PM Referred By: REFERRED SELF Confirmed By:Bo Medellin
[2023-01-31] MEDS: DOXYCYCLINE HYCLATE 100 MG in DEXTROSE 5% MINI-B 100 ML IV SCH (02:17)
[2023-01-31] MEDS: ACETAMINOPHEN 325 MG TAB PO SCH ×2 (05:33→10:45)
[2023-01-31] MEDS: cefTRIAXone SODIUM 2,000 MG in DEXTROSE 5 % MINI-B 50 ML IV SCH (05:33)
[2023-01-31 07:31] LABS: Hematocrit (blood only) 33.7 % (37.0-47.0); Hemoglobin 10.7 g/dl (12.0-16.0); Mean Corpuscular Hemoglobin 26.2 pg (25.0-34.0); Mean Corpuscular Hgb Conc 31.8 g/dL (32.0-36.0); Mean Corpuscular Volume 82.4 fL (80.0-100.0); Mean Platelet Volume 10.5 fL (9.4-12.4); Platelet Count 278 K/uL (130-400); RDW Coefficient of Variation 14.3 % (11.5-14.5); RDW Standard Deviation 42.7 fL (36.4-46.3); Red Blood Count 4.09 M/uL (4.20-5.40); White Blood Count 9.73 K/ul (4.8-10.8)
--- NOTE | 2023-01-31 07:33 | Discharge Summary ---
Date of Service January 31, 2023 Admission HPI Per Admitting Provider 22 yo female presents with increased pain after being discharged yesterday 01/27/23 with diagnosis of L lower segmental PE and L lower pneumonia. Discharged on Eliquis, doxycycline, and etodolac. Returning today with continued 10/10 pain and continued SOB. Pt was on OCP until yesterday. Pt with maternal grandfather with history of unknown clotting disorder and early cardiac . Primary Care Provider: Erica Akbar MD Admission Exam Per Admitting Provider General: patient resting is some discomfort, NAD, non-toxic in appearance, answers questions appropriately and follows commands. Skin: warm, dry, intact HEENT: NC/AT, anicteric sclera, conjunctiva without injection, Heart: +S1/S2, regular, no m/r/g Lungs: equal air entry bilaterally, no rales/rhonchi/wheezes Abd: +BS, soft, NT/ND Ext: warm, no clubbing/cyanosis or edema Neuro: nonfocal, patient AA&O x 4, speech intact, no facial droop, moving all extremities on command. Principal Diagnosis pulmonary embolism Discharge Exam General: patient resting comfortably, NAD, non-toxic in appearance, answers questions appropriately and follows commands. Skin: warm, dry, intact HEENT: NC/AT, anicteric sclera, conjunctiva without injection, Heart: clinically well perfused Lungs: no increased work of breathing Abd: NT/ND Ext: warm, no clubbing/cyanosis or edema Neuro: nonfocal, patient AA&O x 4, speech intact, no facial droop, moving all extremities on command. Discharge Data Allergies Allergy/AdvReac Type Severity Reaction Status Date / Time No Known Drug Allergies Allergy Unknown Verified 12/14/22 08:04 Consultations 01/28/23 23:39 ED Decision to Admit Stat Ordered Studies Venous Doppler Study 01/29/23 00:21 BILATERAL LOWER EXTREMITY VENOUS DOPPLER CLINICAL HISTORY: Pulmonary emboli. COMPARISON STUDY: Right lower extremity venous Doppler ultrasound January 17, 2023. TECHNIQUE: Sonography of the deep venous system of the bilateral lower extremities was performed. Compression and augmentation were evaluated. FINDINGS: There is no deep venous thrombus within the right lower extremity. Deep venous thrombus is noted within the left peroneal vein. No additional sites of deep venous thrombus is identified. IMPRESSION: Deep venous thrombus within the left peroneal vein. No additional sites of deep venous thrombus within the lower extremities. Hospital Course (1) Pneumonia: (2) Pulmonary embolism: (3) Depression: Plan 22 y/o female with no significant past medical history presents with inadequately treated pleuritic left sided chest pain in the setting of recent PE admitted for main management. #PE #Pain control Patient presented to the ED 01/27 with CP and SOB. Patient with elevated D-dimer and CT with left lower PE. Left lower extremity DVT. Non-smoker, no recent immobility. Was on combo OCPs - discontinued. Discharged home with Eliquis and pain medication. Returned as pain inadequately controlled at home. Admitted for pain management. Pain control improved. Coagulopathy panel pending. Continue Eliquis 10 mg BID x 7 days then 5 mg BID for at least 3-6 months. Possibly indefinitely depending on panel results. Pain control was achieved - Tylenol scheduled, Ibuprofen 600 mg PRN, Vicodin PRN. Patient was discharged home with a small course of tramadol in addition to OTC analgesics. Outpatient f/u needed to review coag panel. #Concern of Pneumonia ruled out LLL infiltrate seen on CT 01/27. Received IV antibiotics for 4 days but discontinued on at the time of discharge. Patient's symptoms more likely due to pulmonary embolism with ?infarct. #Depression Sertraline 200mg daily Total Time Total Time Spent Total Time Spent (In Minutes): See attending attestation Discharge Plan Discharge Items Patient Disposition: Home - Self-Care Reason For Visit: PE, PNEUMONIA Discharge Diagnosis: pulmonary embolism Condition on Discharge: Good Activity: Per Instructions section Non-emergency contact: Primary Care Provider Call non-emergency contact if: you have any medication questions and your pain is not controlled Follow-up/Referrals: Erica Akbar MD [Primary Care Provider] - Violet Pretty MD [Resident] - (needs TCM, Raffy patient, has seen Berto in the past) Diet: Regular Addtl Attending Provider Instructions: You were admitted to the hospital for pain control. You have a known pulmonary embolism and these can be quite painful. You are being treated with Eliquis for this. This medication is dosed every 12 hours. You take 10 mg twice a day for the first seven days. Then you take 5 mg twice a day. You will transition to 5 mg every 12 hours start 02/04. Continue to take this medication for at least the next 3-6 months. Would defer to your PCP on duration of treatment. Pain Regimen: Tylenol 650 mg every 6 hours scheduled Ibuprofen 600-800s mg every 6-8 hours as needed, respectively Tramadol as needed There were some signs of possible pneumonia on your imaging. You were treated with 4 days of antibiotics. As your symptoms are more likely related to the pulmonary embolism and you never had any signs or symptoms of pneumonia clinically no further antibiotics are indicated. A discharge summary will be sent to your primary care physician to ensure continuity of care. Please bring this discharge summary with you to your next office appointment so that your provider can review it at that time. Follow-up appointments: Make a follow-up appointment with your PCP within the next week. It is very important that you follow up with them shortly after discharge from the hosp ital. Medications: Your medication list has been reviewed and reconciled upon discharge to ensure accuracy and continuity of care. An updated list of all your medications is included with your hospital discharge paperwork. Please review this list closely, and make note of any changes. If you have any issues filling these prescriptions, please call [phone] and ask to leave a message for Dr. Pretty Take your medications as instructed; do not skip a dose of your medicines. Make sure all of your doctors know every medicine you are taking (including omes-wyk-enledaa medicines, vitamins, and supplements). Call your primary care provider before taking any new medicines (including over- the-counter medicines, vitamins, and supplements), because some of these may interact with your current medications, or may make your symptoms worse. Tell your primary care provider if you cannot afford your medications. CONTACT YOUR PRIMARY CARE PROVIDER if you experience any of the following: uncontrolled pain fevers or chills Difficulty following your treatment plan, or difficulty taking medications CALL 911 OR GO TO THE EMERGENCY DEPARTMENT if you experience any of the following: Sudden, severe abdominal pain or nausea/vomiting Severe chest pain, or chest pain that radiates (moves) to your jaw or arm Sudden, severe shortness of breath or difficulty breathing Thank you for allowing us to participate in your care Pending Studies at Discharge: Yes Studies:: coag panel Stand-Alone Forms: [facility] Love, Smoking Cessation Medications and DC Order Prescriptions: New tramadol 50 mg tablet 50 mg PO BID PRN (Reason: pain) Qty: 5 0RF Continued azelastine 137 mcg (0.1 %) aerosol,spray See Rx Instructions .ROUTE .COMPLEX Qty: 30 11RF Rx Instructions: USE 1-2 SPRAYS EACH NOSTRIL 1-2 TIMES DAILY.; cetirizine [Zyrtec] 10 mg tablet 10 mg PO DAILY PRN (Reason: Allergy Symptoms) ibuprofen 800 mg tablet 800 mg PO Q8 Rx Instructions: take for 10 days...ordered 01/17/23 sertraline 100 mg tablet 200 mg PO QAM Eliquis 5 mg tablet See Rx Instructions .ROUTE .COMPLEX Qty: 74 0RF Rx Instructions: Take 10 mg (2 tablets) twice daily for day 1 through 7; beginning on day #8 8 5 mg (1 tablet) twice daily etodolac 200 mg capsule 200 mg PO Q12H PRN (Reason: pain) Qty: 14 0RF Discontinued doxycycline hyclate 100 mg capsule 100 mg PO BID 7 Days Qty: 14 0RF norgestimate-ethinyl estradiol [Tri-Lo-Maylin] 0.18/0.215/0.25 mg-25 mcg tablet 1 tab PO UD Discharge Orders: Discharge Order (Routine); Ordered 01/31/23 Ordered By: Erica Akbar Admission Data Admit Date/Time: 01/29/23 00:21 Attending Provider: Erica Akbar Admit Provider: Dennis Duarte Primary Care Provider: Erica Akbar Other Providers: Raf Martinez; Bull Duvall Other Interventions: Discharge Summary Assessment (RN) Last Done: 01/31/23 11:37 Supervising Physician Co-Signing Physician Notes Resident Physician Supervision Note: I independently interviewed and examined the patient and verified the amador history and physical, reviewed labs and image studies and agree with resident findings and care plan. Resident Activity Tracking Resident Involvement: Resident Care Provided Care Provided: Adult Hospital Medicine
[2023-01-31] MEDS: APIXABAN 5 MG TABLET PO SCH (08:11)
[2023-01-31] MEDS: SERTRALINE HCL 100 MG TABLET PO SCH ×2 (08:11→09:18)
[2023-01-31 08:24] LABS: Partial Thromboplastin Ratio 1.3; Partial Thromboplastin Time 35.4 Seconds (21.0-31.0); Prothrombin Time 11.2 Seconds (9.0-12.0)
[2023-01-31 08:35] LABS: BUN Creatinine Ratio 11.1 (10-20); Calcium 8.5 mg/dl (8.6-10.3); Est GFR (African American) 146.5 ml/min; Est GFR (Non-African American) 126.4 ml/min; Potassium 3.6 mmol/L (3.5-5.1)
[2023-01-31] MEDS ORDERED: SERTRALINE HCL 100 MG TABLET PO ONE (09:26)
[2023-02-03 09:08] LABS: Anti Cardiolipin Ab IgG <2.0 GPL-U/mL; Anti Cardiolipin Ab IgM <2.0 MPL-U/mL; Anti-Thrombin III Activity 88 % normal (80-135); B2 Glycoprotein IgG <2.0 U/mL (<20.0); B2 Glycoprotein IgM <2.0 U/mL (<20.0); PTT LA Screen 56 sec (<=40); Protein S Functional(Activity) 65 % normal (60-140)
== END 2023-01-31 12:55 | disposition home or self-care (01) | DRG 175 ==
LOC: ED 22:14 → EDINP 01-29 00:21 → SUATTDRO 01-29 00:21 → 3N 01-29 01:33